=== PATIENT | female | born 1980 | race Caucasian/White ===

== ENCOUNTER → 2016-06-12 | Outpatient (CLI) | payer OTHER ==
[~2016-06-12] MED LIST: BUSPAR5 MG PO; COLACE 100100 MG/CAP PO; MOTRIN 600600 MG/TAB PO; PERCOCET 325 MG1 TA2 PO; TYLENOL PM EXTR1 TA1 PO; ZOLOFT 100MG100 MG PO
== END ==
LOC: COL.RAD 07:48
DX: M25.551 Pain in right hip (principal)
CPT/HCPCS: J3301; Q9967

== ENCOUNTER → 2016-06-30 | Outpatient (CLI) | payer OTHER | LOC: COL.RAD 13:40 | DX: M51.06 Intervertebral disc disorders with myelopathy, lumbar region (principal); M54.5 Low back pain ==

== ENCOUNTER → 2016-07-19 | Outpatient (CLI) | payer OTHER | LOC: MHCPAIN 08:28 | DX: G89.29 Other chronic pain (principal); M47.27 Other spondylosis with radiculopathy, lumbosacral region | CPT/HCPCS: G0463 ==

== ENCOUNTER → 2016-07-27 | Outpatient (CLI) | payer OTHER | LOC: MHCPAIN 08:35 | DX: M43.06 Spondylolysis, lumbar region (principal) | CPT/HCPCS: J1100; Q9967 ==

== ENCOUNTER → 2016-10-16 | Outpatient (CLI) | payer OTHER | LOC: MHCPAIN 09:24 | DX: G89.29 Other chronic pain (principal); M47.817 Spondylosis without myelopathy or radiculopathy, lumbosacral region; F41.9 Anxiety disorder, unspecified | CPT/HCPCS: G0463 ==

== ENCOUNTER 2016-12-12 11:51 | Day surgery (SDC) | payer OTHER ==
[2016-12-12] VITALS (7 sets, daily range): BP systolic 99–131; BP diastolic 56–73; PULSE 53–72; TEMP 56–98.8
[~2016-12-12] VITALS: Ht 175.3 cm; Wt 87.9 kg
[2016-12-12] MEDS ORDERED: ZOLOFT 100MG100 MG PO (12:30)
[2016-12-12] MEDS ORDERED: BUSPAR5 MG PO (12:30)
[2016-12-12] MEDS ORDERED: TYLENOL PM EXTR1 TA1 PO (12:31)
[2016-12-12] MEDS ORDERED: PERCOCET 325 MG1 TA2 PO (16:54)
[2016-12-12] MEDS ORDERED: MOTRIN 600600 MG/TAB PO (16:55)
[2016-12-12] MEDS ORDERED: COLACE 100100 MG/CAP PO (16:55)
== END 2016-12-12 18:45 | disposition home or self-care (01) ==
LOC: SDCO 11:51 → SURG 17:10 → SDCO 18:45
DX: K66.0 Peritoneal adhesions (postprocedural) (postinfection) (principal); F41.9 Anxiety disorder, unspecified; G43.909 Migraine, unspecified, not intractable, without status migrainosus
CPT/HCPCS: OP; J0690; J1100; J1885; J2270; J2405; J2704; J2710; J3010; J7120